=== PATIENT | female | born 1975 | race Caucasian/White ===

== ENCOUNTER 2025-02-23 11:01 | Outpatient (CLI) | payer BC | END 2025-02-23 11:02 | disposition home or self-care (01) | LOC: CSHDTY/OP 11:01 | PROVIDERS: ATTEND Nurse Practitioner Family | DX: Z71.3 Dietary counseling and surveillance (principal) | CPT/HCPCS: 97802 ==

== ENCOUNTER 2025-04-26 14:44 | Outpatient (CLI) | payer BC | END 2025-04-26 14:45 | disposition home or self-care (01) | LOC: CSHDTY/OP 14:44 | PROVIDERS: ATTEND Nurse Practitioner Family | DX: Z71.3 Dietary counseling and surveillance (principal) | CPT/HCPCS: 97802 ==